=== PATIENT | female | born 1990 | race Caucasian/White ===

== ENCOUNTER 2023-05-09 18:31 | Emergency (ER) | payer BC ==
[~2023-05-09] VITALS: Ht 162 cm; Wt 98.8 kg
[2023-05-09 18:53] VITALS: BP 147/100
[2023-05-09] MEDS ORDERED: Tetanus/Diphtheria/Pertussis (Acell) ADULT Vaccine 0.5 ML IM ONE (19:00)
--- NOTE | 2023-05-09 19:19 | ED Upper Extremity ---
General Chief Complaint: Laceration Stated Complaint: LACERATION ON RT INDEX FINGER Nursing Triage Note: PT PRESENTS TO ED VIA POV FROM HOME WITH COMPLAINTS OF LAC TO R MIDDLE FINGER WHEN SHE WAS WASHING A KNIFE. Source: patient Exam Limitations: no limitations History of Present Illness Date Seen by Provider: May 09, 2023 Time Seen by Provider: 18:54 Initial Comments 32-year-old female presents to the ER with a laceration to the second and third digit of her right hand. Says she was washing a knife and it slipped. She is uncertain of her last tetanus. She states that this knife is brand-new and has never been used. Allergies and Home Medications Allergies Coded Allergies: No Known Drug Allergies (Unverified , 05/09/23) Patient Home Medication List Home Medication List Reviewed: Yes Review of Systems Constitutional: see HPI Past [id number]-[id number] Hx Patient Social History Tobacco Use?: Yes Smokeless Tobacco Frequency: Current Everyday User Use of E-Cig and/or Vaping dev: Yes E-Cig or Vaping type used: Nicotine Use of E-Cig and/or Vaping Chris: Current Everyday User Substance use?: No Alcohol Use?: No Pt feels they are or have been: No Past Medical History Surgery/Hospitalization HX: GALLBLADDER , C-SEC, TONSILS Physical Exam Vital Signs Vital Signs - First Documented 05/09/23 18:53 Temp 36.5 Pulse 83 Resp 18 B/P (MAP) 147/100 (116) Pulse Ox 97 Capillary Refill : Less Than 3 Seconds Height, Weight, BMI Height: '" Weight: lbs. oz. kg; 37.00 BMI Method: General Appearance: WD/WN, no apparent distress Neck: supple, normal inspection Cardiovascular: regular rate, rhythm Respiratory: lungs clear, normal breath sounds, no respiratory distress, no accessory muscle use Hand: normal ROM, laceration (Second and third digit at the proximal joint) Neurologic/Psychiatric: alert, normal mood/affect Skin: normal color, warm/dry Procedures/Interventions Wound Location: Upper Extremities (right hand) Other Wound Location Second and third digit Wound Length (cm): 1.5 Wound's Depth, Shape: linear Irrigated w/ Saline (ccs): 400 Anesthesia: 1% Lidocaine Volume Anesthetic (ccs): 6 Suture: Ethlion Suture Size: 4-0 Number of Sutures: 6 Progress/Results/Core Measures Results/Orders My Orders Orders - ISAIAH FLORES APRN Dipht/Pertuss(Acell)/Tet Adult (Dipht/Pe (05/09/23 19:00) Vital Signs/I&O 05/09/23 18:53 Temp 36.5 Pulse 83 Resp 18 B/P (MAP) 147/100 (116) Pulse Ox 97 Blood Pressure Mean: 116 Progress Progress Note : Progress Note Patient seen and evaluated, resting comfortably in bed, no acute distress. Patient has full range of motion of the both injured fingers. Digital block performed. Lacerations repaired, see procedure note. Finger splint placed over the second digit to prevent the sutures from coming out due to the laceration location over the proximal joint.. I offered to update patient's tetanus, pat ient declined. Patient is stable for discharge. Discharge instructions and return precautions provided. Departure Impression Primary Impression: Laceration Disposition: 01 HOME, SELF-CARE Condition: Stable Departure-Patient Inst. Decision time for Depature: 19:55 Patient Instructions: Laceration Repair With Stitches (DC) Add. Discharge Instructions: Return in 7-10 days to have the sutures removed. Keep the splint in place for the next 2 days. After you remove the splint, you may wash your hands with soap and water. Do not scrub, do not soak your hands. Be careful not to bend the fingers to prevent the sutures from coming out. Return for signs of infection including redness, swelling, discolored odorous drainage, any other new, concerning, or worsening symptoms. All discharge instructions reviewed with patient and/or family. Voiced understanding. ISAIAH FLORES APRN May 09, 2023 19:19
== END 2023-05-09 20:12 | disposition home or self-care (01) ==
LOC: ER 18:37
DX: S61.210A Laceration without foreign body of right index finger without damage to nail, initial encounter (principal); S61.212A Laceration without foreign body of right middle finger without damage to nail, initial encounter; F17.290 Nicotine dependence, other tobacco product, uncomplicated; Z23 Encounter for immunization; W26.0XXA Contact with knife, initial encounter
CPT/HCPCS: 12001